=== PATIENT | female | born 1965 | race Caucasian/White ===

== ENCOUNTER 2017-01-10 12:04 | Emergency (ER) | payer OTHER ==
[~2017-01-10] VITALS: Ht 157.5 cm; Wt 70.4 kg
[2017-01-10 13:35] VITALS: BP 106/68
[2017-01-10] MEDS ORDERED: CHLO25TA PO (13:47)
[2017-01-10] MEDS ORDERED: ATEN25TA PO (13:47)
[2017-01-10] MEDS ORDERED: POTA10CA PO (13:47)
[2017-01-10] MEDS ORDERED: FLUO20CA8 PO (13:47)
[2017-01-10] MEDS ORDERED: RANI-276 PO (13:47)
[2017-01-10] MEDS ORDERED: HYDROcodone/APAP 5/325 TABLET PO ONE (14:00)
[2017-01-10] MEDS ORDERED: HYDROcodone/APAP 5/325 TABLET ONE (14:20)
== END 2017-01-10 15:46 | disposition home or self-care (01) ==
LOC: ED 14:36
DX: R51 Headache (principal)
CPT/HCPCS: 70450; 99284

== ENCOUNTER 2017-08-26 12:47 | Emergency (ER) | payer BC, OTHER ==
[~2017-08-26] VITALS: Ht 157.5 cm; Wt 72.1 kg
[~2017-08-26 12:47] MED LIST: ATEN25TA PO; CHLO25TA PO; FLUO20CA8 PO; POTA10CA PO; RANI-276 PO
[2017-08-26] MEDS ORDERED: SODIUM CHLORIDE 0.9% 1,000 ML IV ONE (13:32)
[2017-08-26] MEDS ORDERED: SODIUM CHLORIDE 0.9% 1,000ML IVBOLUS ONE (14:00)
[2017-08-26 14:11] LABS: HEMATOCRIT 44.2 % (34.6-47.8); HEMOGLOBIN 14.9 g/dL (11.7-16.4); WHITE BLOOD COUNT 10.5 x10^3/uL (3.4-10)
[2017-08-26 14:22] LABS: ASPARTATE AMINO TRANSFERASE 17 U/L (15-37); BLOOD UREA NITROGEN 16 mg/dL (7-18)
[2017-08-26] MEDS ORDERED: ONDANSETRON 2MG/ML, 2ML IVPush ONE (14:30)
[2017-08-26] MEDS ORDERED: HYDROmorphone 2 MG/ML, 1ML ONE (14:53)
[2017-08-26] MEDS ORDERED: ONDANSETRON 2MG/ML, 2ML ONE (14:53)
[2017-08-26] MEDS: HYDROmorphone 1 MG/ML, 1ML IVPush PRN ×2 (15:22→16:56)
[2017-08-26] MEDS ORDERED: DULO30CA2 PO (15:36)
[2017-08-26] MEDS ORDERED: ATOR20TA PO (15:36)
[2017-08-26] MEDS ORDERED: OMNIPAQUE 350 MG/ML, 100ML BOTTLE ONE (16:51)
[2017-08-26] MEDS ORDERED: POTASSIUM CHLORIDE 20 MEQ TAB.ER.PRT PO ONE (17:30)
[2017-08-26] MEDS ORDERED: POTASSIUM CHLORIDE 20 MEQ TAB.ER.PRT ONE (20:03)
[2017-08-26 20:18] VITALS: BP 100/58
== END 2017-08-26 20:21 | disposition home or self-care (01) ==
LOC: ED 16:31
DX: A04.72 Enterocolitis due to Clostridium difficile, not specified as recurrent (principal); E87.6 Hypokalemia; Z93.3 Colostomy status; Z98.84 Bariatric surgery status
CPT/HCPCS: 36415; 74177; 80053; 83690; 85025; 87324; 89055; 96361; 96374; 96375; 96376; 99285; J1170; J2405; J7030; Q9967

== ENCOUNTER → 2018-04-25 | Outpatient (CLI) | payer BC ==
[~2018-04-25] MED LIST changes: +ATOR20TA PO; +DULO30CA2 PO
== END | disposition home or self-care (01) ==
LOC: CFH 08:01
PROVIDERS: ATTEND Registered Nurse
DX: G47.34 Idiopathic sleep related nonobstructive alveolar hypoventilation (principal); R51 Headache; M54.2 Cervicalgia
CPT/HCPCS: 71250

== ENCOUNTER → 2018-05-10 | Outpatient (CLI) | payer BC ==
[2018-05-10 07:16] LABS: ALBUMIN 3.5 g/dL (3.4-5.0); ANION GAP 5 mmol/L (5-15); CALCIUM 8.9 mg/dL (8.5-10.1); CHLORIDE 108 mmol/L (98-107)
[2018-05-10 07:19] LABS: ALANINE AMINOTRANSFERASE 23 U/L (12-78); ALKALINE PHOSPHATASE 67 U/L (45-117); BILIRUBIN,TOTAL 0.5 mg/dL (0.2-1.0); CHOL/HDL RATIO 2.8; CHOLESTEROL, TOTAL 221 mg/dL (140-239); CREATININE 0.93 mg/dL (0.55-1.02); HDL CHOL % 36 % (28-40); HDL CHOLESTEROL (DIRECT) 80 mg/dL (40-60); LDL CHOLESTEROL,CALCULATED 119 mg/dL (54-169); LDL/HDL RATIO 1.5 (0.5-3.0); TRIGLYCERIDES 109 mg/dL (50-200); VLDL CHOLESTEROL 22 mg/dL (0-25)
== END | disposition home or self-care (01) ==
LOC: LAB 06:38
PROVIDERS: ATTEND Nurse Practitioner Primary Care
DX: E78.4 Other hyperlipidemia (principal)
CPT/HCPCS: 36415; 80053; 80061

== ENCOUNTER 2020-04-03 16:58 | Emergency (ER) | payer BC ==
[~2020-04-03] VITALS: Ht 157.5 cm; Wt 70.6 kg
[~2020-04-03 16:58] MED LIST changes: +FLUO20CA23 PO; -FLUO20CA8 PO; -RANI-276 PO; +RANI-460 PO
--- NOTE | 2020-04-03 17:28 | NUR ---
CLERICAL ADVISER: PT TO ROOM FROM LOBBY.
--- NOTE | 2020-04-03 18:13 | NUR ---
WAITING ON ORDERS
--- NOTE | 2020-04-03 18:30 | NUR ---
PT SITTING UP IN BEP AO4 NASN
[2020-04-03] MEDS ORDERED: OMNIPAQUE 350 MG/ML, 100ML BOTTLE ONE (18:53)
--- NOTE | 2020-04-03 18:55 | NUR ---
assumed care of pt. report from Jason BELLE. pt here for MAYBERRY x2 days. pt states that she has hx of brain aneurysm. 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 pt reports intermittent dizziness and intermittent blurred vision. pt A&O x4. PERRLA. speaking full sentences without difficulty. no facil droop. KIMBROUGH. pt notified that she is to recieve medications and advised not to drive after. pt reports that her son can pick her up. no family currently at bedside
[2020-04-03] MEDS ORDERED: MORPHINE SULFATE 4 MG/ML, 1ML IVPush PRN (19:00)
[2020-04-03] MEDS ORDERED: DIPHENHYDRAMINE 50 MG/ML, 1ML IVPush ONE (19:00)
[2020-04-03] MEDS ORDERED: PROCHLORPERAZINE 5 MG/ML, 2ML IVPush ONE (19:00)
[2020-04-03] MEDS ORDERED: INDO25CA22 PO (19:08)
[2020-04-03] MEDS ORDERED: ALLO100T30 PO (19:08)
[2020-04-03] MEDS ORDERED: DIPHENHYDRAMINE 50 MG/ML, 1ML ONE (19:14)
[2020-04-03] MEDS ORDERED: PROCHLORPERAZINE 5 MG/ML, 2ML ONE (19:15)
[2020-04-03] MEDS ORDERED: MORPHINE SULFATE 4 MG/ML, 1ML ONE (19:15)
--- NOTE | 2020-04-03 19:34 | NUR ---
pt has been medicated per order. lights dimmed for comfort. awaiting CT scan
[2020-04-03 19:35] LABS: ALANINE AMINOTRANSFERASE 27 U/L (12-78); ALBUMIN 3.3 g/dL (3.4-5.0); ANION GAP 3 mmol/L (5-15); CALCIUM 8.8 mg/dL (8.5-10.1); CHLORIDE 108 mmol/L (98-107); CREATININE 0.97 mg/dL (0.55-1.02)
[2020-04-03 19:38] LABS: ALKALINE PHOSPHATASE 81 U/L (45-117); BILIRUBIN,TOTAL 0.4 mg/dL (0.2-1.0); TOTAL PROTEIN 6.6 g/dL (6.4-8.2)
--- NOTE | 2020-04-03 20:15 | NUR ---
pt in RAD
[2020-04-03 20:21] LABS: BASOPHILS # (AUTO) 0.04 x10^3/uL (0-0.1); BASOPHILS % (AUTO) 1 % (0-1); EOSINOPHILS % (AUTO) 4 % (1-7); LYMPHOCYTES # (AUTO) 1.37 x10^3/uL (1-3.4); LYMPHOCYTES % (AUTO) 28 % (22-44); MD NO; MEAN CORPUSCULAR HEMOGLOBIN 31.5 pg (27.0-34.8); MEAN CORPUSCULAR HGB CONC 32.2 g/dL (32.4-35.8); MEAN PLATELET VOLUME 8.7 fL (7.4-10.4); MONOCYTES # (AUTO) 0.43 x10^3/uL (0.2-0.8); MONOCYTES % (AUTO) 9 % (2-9); NEUTROPHILS # (AUTO) 2.93 x10^3/uL (1.8-6.8); NEUTROPHILS % (AUTO) 59 % (42-75); PLATELET COUNT 254 x10^3/uL (130-400); RED BLOOD COUNT 4.11 x10^6/uL (3.82-5.3); RED CELL DISTRIBUTION WIDTH 15.9 % (9.6-15.2)
--- NOTE | 2020-04-03 20:36 | NUR ---
pt denies pain. resting in position of comfort with lights dimmed. chart up for MD recheck. pt updated on POC
[2020-04-03 21:03] VITALS: BP 121/72
== END 2020-04-03 21:08 | disposition home or self-care (01) ==
LOC: ED 17:35
DX: R51 Headache (principal); R42 Dizziness and giddiness; M79.89 Other specified soft tissue disorders; H53.8 Other visual disturbances
CPT/HCPCS: 36415; 70450; 70496; 80053; 85025; 96374; 96375; 99285; J0780; J1200; J2270; Q9967

== ENCOUNTER 2020-06-30 20:34 | Inpatient (IN) | payer BC ==
[~2020-06-30] VITALS: Ht 157.5 cm; Wt 76.0 kg
[~2020-06-30 20:34] MED LIST changes: +ALLO100T30 PO; +INDO25CA22 PO
--- NOTE | 2020-06-30 21:16 | NUR ---
THIS IS A 54Y F THAT COMES IN FOR DENTAL PAIN/ FACIAL SWELLING WAS SEEN AT URGENT CARE YESTERDAY AND GIVEN ABX, PT WAS ALSO SEEN AT DENTAL OFFICE TOLD TO COME BACK IN THE MORNING FOR TOOTH EXTRACTION, PT STS SWELLING HAS GOTTEN WORSE SINCE THIS TIME. PT CONNECTED TO MONITORING VSS NADN
[2020-06-30] MEDS ORDERED: CLINDAMYCIN PMX 600MG/50ML 50 ML IV ONE (21:30)
[2020-06-30] MEDS ORDERED: SODIUM CHLORIDE FLUSH 10ML SYR IVF ONE (21:30)
[2020-06-30] MEDS ORDERED: ONDANSETRON 2MG/ML, 2ML IVPush ONE (21:30)
[2020-06-30] MEDS ORDERED: MORPHINE SULFATE 4 MG/ML, 1ML ONE (21:40)
[2020-06-30] MEDS ORDERED: ONDANSETRON 2MG/ML, 2ML ONE (21:40)
[2020-06-30] MEDS ORDERED: CLINDAMYCIN PMX 600MG/50ML 50 ML ONE (21:40)
[2020-06-30] MEDS: MORPHINE SULFATE 4 MG/ML, 1ML IVPush PRN ×2 (21:46→22:11)
--- NOTE | 2020-06-30 21:50 | NUR ---
PIV STARTED, PT MEDICATED PER NOV FOR PAIN AND NAUSEA, IV ABX STARTED, PER GENIA NO CULTURES AT THIS TIME PT HAS BEEN ON HOME ABX PRIOR TO COMING IN [facility].
--- NOTE | 2020-06-30 21:52 | NUR ---
REPORT TO ARCHANA BELLELEGAL RESEARCH ANALYST OF CARE AT THIS TIME
[2020-06-30 21:58] LABS: ALBUMIN 3.3 g/dL (3.4-5.0); ANION GAP 4 mmol/L (5-15); CALCIUM 8.6 mg/dL (8.5-10.1); CHLORIDE 108 mmol/L (98-107); CREATININE 1.03 mg/dL (0.55-1.02)
[2020-06-30 22:03] LABS: BASOPHILS % (AUTO) 1 % (0-1); EOSINOPHILS % (AUTO) 6 % (1-7); LYMPHOCYTES % (AUTO) 23 % (22-44); MEAN CORPUSCULAR HEMOGLOBIN 31.3 pg (27.0-34.8); MEAN CORPUSCULAR HGB CONC 32.7 g/dL (32.4-35.8); MONOCYTES % (AUTO) 7 % (2-9); NEUTROPHILS % (AUTO) 64 % (42-75); PLATELET COUNT 261 x10^3/uL (130-400); RED BLOOD COUNT 3.88 x10^6/uL (3.82-5.3); RED CELL DISTRIBUTION WIDTH 14.9 % (9.6-15.2)
[2020-06-30 22:11] LABS: MD NO
--- NOTE | 2020-06-30 22:13 | NUR ---
REPORT RECEIVED FROM ANEUDY BELLE. PT RESTING IN [facility].
[2020-06-30] MEDS ORDERED: OMNIPAQUE 350 MG/ML, 75ML BOTTLE ONE (22:38)
--- NOTE | 2020-06-30 23:30 | NUR ---
pt resting in [place], denies needs
[2020-07-01] MEDS ORDERED: HYDROCHLOROTH12.5 MG PO (00:29)
[2020-07-01] MEDS ORDERED: VANCOMYCIN 1,800 MG in SODIUM CHLORIDE 0.9% 250 ML IV ONE (00:30)
[2020-07-01] MEDS ORDERED: HYDROmorphone 1 MG/ML, 1ML INJ IVPush PRN (00:30)
[2020-07-01] MEDS ORDERED: VANCOMYCIN PER PHARMACY MC PRN ×2 (00:30)
--- NOTE | 2020-07-01 00:34 | NUR ---
report given to BARBRA Sandoval
[2020-07-01 00:51] VITALS: BP 141/67
[2020-07-01] MEDS ORDERED: ACETAMINOPHEN 325 MG TABLET PO PRN (01:00)
[2020-07-01] MEDS ORDERED: ONDANSETRON ODT 4 MG PO PRN (01:00)
[2020-07-01] MEDS ORDERED: BISACODYL 10 MG SUPP PR PRN (01:00)
[2020-07-01] MEDS ORDERED: POLYETHYLENE GLYCOL 17 GM PACKET PO PRN (01:00)
[2020-07-01] MEDS ORDERED: PHARMACOKINETIC MONITORING MC PRN (01:00)
[2020-07-01] MEDS: morphine SULFATE 10 MG/ML, 1ML IVPush PRN ×6 (01:16→20:48)
[2020-07-01] MEDS: AMPICILLIN/SULBACTAM 3 GM in SODIUM CHLORIDE 0.9% 100 ML IV SCH ×4 (03:31→20:48)
[2020-07-01 08:52] VITALS: BP 120/75
[2020-07-01] MEDS: POTASSIUM CHLORIDE 10 MEQ TABLET.ER PO SCH (09:22)
[2020-07-01] MEDS: HYDROCHLOROTHIAZIDE 12.5 MG CAPSULE PO SCH (09:22)
[2020-07-01] MEDS: FLUOXETINE HCL 20 MG CAPSULE PO SCH (09:22)
[2020-07-01] MEDS: ALLOPURINOL 100 MG TABLET PO SCH (09:22)
[2020-07-01] MEDS: SENNA/DOCUSATE TABLET PO SCH (09:23)
[2020-07-01] MEDS: ATENOLOL 25 MG TABLET PO SCH (09:32)
[2020-07-01] MEDS: HYDROcodone/APAP 5/325 TABLET PO PRN ×2 (11:27→19:35)
[2020-07-01 12:21] VITALS: BP 116/74
[2020-07-01] MEDS: VANCOMYCIN 1,400 MG in SODIUM CHLORIDE 0.9% 250 ML IV SCH (13:03)
[2020-07-01] MEDS: HEPARIN 5,000 UNITS/ML, 1ML SQ SCH (16:38)
[2020-07-01 19:16] VITALS: BP 118/72
[2020-07-01] MEDS: ATORVASTATIN 20 MG TABLET PO SCH (20:48)
[2020-07-02 01:12] VITALS: BP 114/66
[2020-07-02] MEDS: VANCOMYCIN 1,400 MG in SODIUM CHLORIDE 0.9% 250 ML IV SCH ×2 (01:18→13:08)
[2020-07-02] MEDS: HYDROcodone/APAP 5/325 TABLET PO PRN ×3 (01:20→13:10)
[2020-07-02] MEDS: HEPARIN 5,000 UNITS/ML, 1ML SQ SCH ×3 (01:22→16:14)
[2020-07-02] MEDS: morphine SULFATE 10 MG/ML, 1ML IVPush PRN ×6 (02:41→22:04)
[2020-07-02] MEDS: AMPICILLIN/SULBACTAM 3 GM in SODIUM CHLORIDE 0.9% 100 ML IV SCH ×4 (03:17→20:36)
[2020-07-02 05:37] LABS: ANION GAP 2 mmol/L (5-15); CALCIUM 8.8 mg/dL (8.5-10.1); CHLORIDE 107 mmol/L (98-107)
[2020-07-02 05:44] LABS: BASOPHILS % (AUTO) 0 % (0-1); EOSINOPHILS % (AUTO) 6 % (1-7); LYMPHOCYTES % (AUTO) 22 % (22-44); MEAN CORPUSCULAR HEMOGLOBIN 31.3 pg (27.0-34.8); MEAN CORPUSCULAR HGB CONC 32.4 g/dL (32.4-35.8); MEAN PLATELET VOLUME 8.2 fL (7.4-10.4); MONOCYTES % (AUTO) 7 % (2-9); NEUTROPHILS % (AUTO) 65 % (42-75); PLATELET COUNT 225 x10^3/uL (130-400); RED BLOOD COUNT 3.66 x10^6/uL (3.82-5.3); RED CELL DISTRIBUTION WIDTH 15.2 % (9.6-15.2)
[2020-07-02 05:50] LABS: CREATININE 0.81 mg/dL (0.55-1.02)
[2020-07-02 06:00] LABS: MD NO
[2020-07-02 07:07] VITALS: BP 105/65
[2020-07-02] MEDS: POTASSIUM CHLORIDE 10 MEQ TABLET.ER PO SCH (07:39)
[2020-07-02] MEDS: ALLOPURINOL 100 MG TABLET PO SCH (07:40)
[2020-07-02] MEDS: HYDROCHLOROTHIAZIDE 12.5 MG CAPSULE PO SCH (07:40)
[2020-07-02] MEDS: SENNA/DOCUSATE TABLET PO SCH (07:40)
[2020-07-02] MEDS: FLUOXETINE HCL 20 MG CAPSULE PO SCH (07:40)
[2020-07-02] MEDS: ATENOLOL 25 MG TABLET PO SCH (07:41)
[2020-07-02 13:05] VITALS: BP 115/72
[2020-07-02] MEDS: LACTATED RINGERS 1,000 ML IV SCH (16:47)
[2020-07-02 18:17] VITALS: BP 120/73
[2020-07-02] MEDS: ATORVASTATIN 20 MG TABLET PO SCH (20:36)
[2020-07-03] MEDS: VANCOMYCIN 1,400 MG in SODIUM CHLORIDE 0.9% 250 ML IV SCH ×3 (01:00→16:54)
[2020-07-03] MEDS: HEPARIN 5,000 UNITS/ML, 1ML SQ SCH ×3 (01:08→17:03)
[2020-07-03 01:11] VITALS: BP 118/59
[2020-07-03] MEDS: AMPICILLIN/SULBACTAM 3 GM in SODIUM CHLORIDE 0.9% 100 ML IV SCH ×4 (03:16→21:12)
[2020-07-03] MEDS: morphine SULFATE 10 MG/ML, 1ML IVPush PRN ×4 (04:07→21:13)
[2020-07-03] MEDS: LACTATED RINGERS 1,000 ML IV SCH ×2 (04:09→22:11)
[2020-07-03 05:57] LABS: BASOPHILS % (AUTO) 0 % (0-1); EOSINOPHILS % (AUTO) 4 % (1-7); LYMPHOCYTES % (AUTO) 19 % (22-44); MEAN CORPUSCULAR HEMOGLOBIN 31.8 pg (27.0-34.8); MEAN PLATELET VOLUME 8.1 fL (7.4-10.4); MONOCYTES % (AUTO) 7 % (2-9); NEUTROPHILS % (AUTO) 70 % (42-75); PLATELET COUNT 223 x10^3/uL (130-400); RED BLOOD COUNT 3.34 x10^6/uL (3.82-5.3); RED CELL DISTRIBUTION WIDTH 15.2 % (9.6-15.2)
[2020-07-03 05:58] LABS: CHLORIDE 105 mmol/L (98-107)
[2020-07-03 06:02] LABS: ANION GAP 8 mmol/L (5-15); CALCIUM 8.9 mg/dL (8.5-10.1); CREATININE 0.62 mg/dL (0.55-1.02)
[2020-07-03 06:12] LABS: MD NO
[2020-07-03 07:29] VITALS: BP 146/77
[2020-07-03] MEDS: SENNA/DOCUSATE TABLET PO SCH (08:36)
[2020-07-03] MEDS: HYDROCHLOROTHIAZIDE 12.5 MG CAPSULE PO SCH (08:36)
[2020-07-03] MEDS: POTASSIUM CHLORIDE 10 MEQ TABLET.ER PO SCH (08:37)
[2020-07-03] MEDS: FLUOXETINE HCL 20 MG CAPSULE PO SCH (08:37)
[2020-07-03] MEDS: ATENOLOL 25 MG TABLET PO SCH (08:38)
[2020-07-03] MEDS: ALLOPURINOL 100 MG TABLET PO SCH (08:39)
[2020-07-03] MEDS ORDERED: EPINEPHRINE 1 MG/ML, 1ML ONE (13:07)
[2020-07-03] MEDS ORDERED: LIDOCAINE 1%, 20ML ONE (13:07)
[2020-07-03] MEDS ORDERED: FENTANYL PF 100 MCG/2ML ONE ×2 (13:13→14:01)
[2020-07-03] MEDS ORDERED: MIDAZOLAM 1 MG/ML, 2ML ONE (13:13)
[2020-07-03] MEDS ORDERED: PROMETHAZINE 25 MG/ML, 1ML IVPush PRN (13:30)
[2020-07-03] MEDS ORDERED: LABETALOL 5MG/ML, 20ML IV PRN (13:30)
[2020-07-03] MEDS ORDERED: MEPERIDINE/PF 25MG/0.5ML IVPush PRN (13:30)
[2020-07-03] MEDS ORDERED: FENTANYL PF 100 MCG/2ML IV PRN (13:30)
[2020-07-03] MEDS ORDERED: hydrALAzine 20 MG/ML, 1ML IV PRN (13:30)
[2020-07-03] MEDS ORDERED: DIPHENHYDRAMINE 50 MG/ML, 1ML IVPush PRN (13:30)
[2020-07-03] MEDS ORDERED: HALOPERIDOL 5 MG/ML IV PRN (13:30)
[2020-07-03] MEDS ORDERED: OXYcodone 5 MG/5 ML ORAL.SOL UDC PO PRN (13:30)
[2020-07-03] MEDS ORDERED: LIDOCAINE 1%-EPI 1:100K, 20ML IM ONE (13:46)
[2020-07-03] MEDS ORDERED: CEFAZOLIN 1,000 MG ONE (13:53)
[2020-07-03] MEDS ORDERED: NEOSTIGMINE 1 MG/ML, 10ML ONE (13:53)
[2020-07-03] MEDS ORDERED: GLYCOPYRROLATE 0.2MG/1ML, 5ML ONE (13:53)
[2020-07-03] MEDS ORDERED: SUCCINYLCHOLINE 20 MG/ML, 10ML ONE (13:53)
[2020-07-03] MEDS ORDERED: PROPOFOL 10 MG/ML, 20ML ONE (13:53)
[2020-07-03] MEDS ORDERED: DEXAMETHASONE 4 MG/ML, 1ML ONE (13:53)
[2020-07-03] MEDS ORDERED: ONDANSETRON 2MG/ML, 2ML ONE (13:53)
[2020-07-03] MEDS ORDERED: ROCURONIUM 10MG/ML,5ML ONE (13:53)
[2020-07-03] MEDS ORDERED: HYDROmorphone 1 MG/ML, 1ML INJ ONE (14:02)
[2020-07-03] MEDS: HYDROmorphone 1 MG/ML, 1ML INJ IVPush PRN ×2 (14:26→14:39)
[2020-07-03 15:12] VITALS: BP 157/82
[2020-07-03] MEDS: CHLORHEXIDINE 15 ML UDC MM SCH ×2 (16:55→21:12)
[2020-07-03 18:58] VITALS: BP 126/74
[2020-07-03] MEDS: ATORVASTATIN 20 MG TABLET PO SCH (21:12)
[2020-07-04] MEDS: HEPARIN 5,000 UNITS/ML, 1ML SQ SCH ×3 (00:56→17:32)
[2020-07-04 00:58] VITALS: BP 103/65
[2020-07-04] MEDS: AMPICILLIN/SULBACTAM 3 GM in SODIUM CHLORIDE 0.9% 100 ML IV SCH ×4 (03:09→21:13)
[2020-07-04] MEDS: morphine SULFATE 10 MG/ML, 1ML IVPush PRN ×2 (03:09→17:27)
[2020-07-04] MEDS: VANCOMYCIN 1,400 MG in SODIUM CHLORIDE 0.9% 250 ML IV SCH ×2 (04:09→16:06)
[2020-07-04] MEDS: CHLORHEXIDINE 15 ML UDC MM SCH ×4 (06:53→20:19)
[2020-07-04 07:21] VITALS: BP 120/79
[2020-07-04 07:36] LABS: BASOPHILS % (AUTO) 1 % (0-1); EOSINOPHILS % (AUTO) 2 % (1-7); LYMPHOCYTES % (AUTO) 12 % (22-44); MEAN CORPUSCULAR HEMOGLOBIN 31.8 pg (27.0-34.8); MEAN CORPUSCULAR HGB CONC 32.9 g/dL (32.4-35.8); MEAN PLATELET VOLUME 8.8 fL (7.4-10.4); MONOCYTES % (AUTO) 5 % (2-9); NEUTROPHILS % (AUTO) 81 % (42-75); PLATELET COUNT 251 x10^3/uL (130-400); RED BLOOD COUNT 3.53 x10^6/uL (3.82-5.3); RED CELL DISTRIBUTION WIDTH 14.8 % (9.6-15.2)
[2020-07-04 07:37] LABS: ANION GAP 5 mmol/L (5-15); CALCIUM 8.7 mg/dL (8.5-10.1); CHLORIDE 104 mmol/L (98-107); CREATININE 0.64 mg/dL (0.55-1.02)
[2020-07-04] MEDS: SENNA/DOCUSATE TABLET PO SCH (07:55)
[2020-07-04] MEDS: POTASSIUM CHLORIDE 10 MEQ TABLET.ER PO SCH (07:57)
[2020-07-04] MEDS: FLUOXETINE HCL 20 MG CAPSULE PO SCH (07:58)
[2020-07-04] MEDS: ALLOPURINOL 100 MG TABLET PO SCH (07:58)
[2020-07-04] MEDS: HYDROCHLOROTHIAZIDE 12.5 MG CAPSULE PO SCH (07:59)
[2020-07-04] MEDS: ATENOLOL 25 MG TABLET PO SCH (07:59)
[2020-07-04 08:06] LABS: MD SCAN
[2020-07-04 13:17] VITALS: BP 104/66
[2020-07-04 19:12] VITALS: BP 102/67
[2020-07-04] MEDS: ATORVASTATIN 20 MG TABLET PO SCH (20:20)
[2020-07-05] MEDS: HEPARIN 5,000 UNITS/ML, 1ML SQ SCH ×2 (01:01→07:25)
[2020-07-05 01:03] VITALS: BP 124/73
[2020-07-05] MEDS: AMPICILLIN/SULBACTAM 3 GM in SODIUM CHLORIDE 0.9% 100 ML IV SCH ×2 (03:20→09:00)
[2020-07-05] MEDS: VANCOMYCIN 1,400 MG in SODIUM CHLORIDE 0.9% 250 ML IV SCH (04:15)
[2020-07-05] MEDS: CHLORHEXIDINE 15 ML UDC MM SCH ×2 (07:24→11:14)
[2020-07-05] MEDS: ATENOLOL 25 MG TABLET PO SCH (07:25)
[2020-07-05] MEDS: ALLOPURINOL 100 MG TABLET PO SCH (07:25)
[2020-07-05] MEDS: HYDROCHLOROTHIAZIDE 12.5 MG CAPSULE PO SCH (07:25)
[2020-07-05] MEDS: POTASSIUM CHLORIDE 10 MEQ TABLET.ER PO SCH (07:25)
[2020-07-05] MEDS: FLUOXETINE HCL 20 MG CAPSULE PO SCH (07:25)
[2020-07-05] MEDS: SENNA/DOCUSATE TABLET PO SCH (07:25)
[2020-07-05 07:43] VITALS: BP 133/79
[2020-07-05 10:50] LABS: CLOSTRIDIUM DIFFICILE ANTIGEN NEGATIVE; CLOSTRIDIUM DIFFICILE TOXIN NEGATIVE (Negative)
[2020-07-05] MEDS ORDERED: VANCOMYCIN 1,400 MG in SODIUM CHLORIDE 0.9% 250 ML IV SCH (22:00)
== END 2020-07-05 14:38 | disposition home or self-care (01) | DRG 602 ==
LOC: ED 21:39 → EDIP 07-01 00:16 → 4NW 07-01 00:43 → DCLOUNGE 07-05 14:31
PROVIDERS: ADMIT Family Medicine; ATTEND Family Medicine
DX: L03.213 Periorbital cellulitis (principal); J96.01 Acute respiratory failure with hypoxia; L03.211 Cellulitis of face; M10.9 Gout, unspecified; I10 Essential (primary) hypertension; F17.200 Nicotine dependence, unspecified, uncomplicated; E78.5 Hyperlipidemia, unspecified; Z86.711 Personal history of pulmonary embolism; Z90.710 Acquired absence of both cervix and uterus; Z98.84 Bariatric surgery status; K08.89 Other specified disorders of teeth and supporting structures; Z20.828 Contact with and (suspected) exposure to other viral communicable diseases
CPT/HCPCS: 36415; 96374; 96375; 96376; 99285; J3490; 70487; 80048; 80202; 82040; 85025; 85651; 86140; 87040; 87070; 87075; 87205; 87324; 87635; G0378; J0171; J0295; J0690; J1100; J1170; J1644; J2250; J2405; J2704; J2710; J3010; J3370; Q0162; Q9967; J0330; J2270; J7050; J7120